=== PATIENT | female | born 1940 | race Caucasian/White ===

== ENCOUNTER → 2017-03-02 | Outpatient (CLI) | payer MEDICARE, OTHER | LOC: MAMMO 13:04 | DX: Z12.31 Encounter for screening mammogram for malignant neoplasm of breast (principal) | CPT/HCPCS: G0202 ==

== ENCOUNTER → 2018-04-19 | Outpatient (CLI) | payer MEDICARE, OTHER | LOC: MAMMO 10:44 | DX: Z12.31 Encounter for screening mammogram for malignant neoplasm of breast (principal) ==

== ENCOUNTER 2021-02-26 11:45 | Emergency (ER) | payer MEDICARE, OTHER ==
[~2021-02-26] VITALS: Ht 165.1 cm; Wt 90.9 kg
[2021-02-26 12:58] VITALS: BP 147/76
== END 2021-02-26 12:57 | disposition home or self-care (01) ==
LOC: ED 11:45
DX: S60.222A Contusion of left hand, initial encounter (principal); I10 Essential (primary) hypertension; W01.0XXA Fall on same level from slipping, tripping and stumbling without subsequent striking against object, initial encounter; W23.0XXA Caught, crushed, jammed, or pinched between moving objects, initial encounter

== ENCOUNTER 2024-07-03 13:24 | Emergency (ER) | payer MEDICARE, OTHER ==
[~2024-07-03] VITALS: Ht 162.6 cm; Wt 82.9 kg
[~2024-07-03 13:24] MED LIST: ATORVASTATIN CA20 MG PO; GABAPENTIN100 MG PO; LEVOTHYROXINE125 MCG PO; METOPROLOL SUCC25 M1 PO; PRILOSEC 20MG20 MG PO; VALSARTAN AND H1 TA3 PO
[2024-07-03 14:10] LABS: BASO # 0.03 K/mm3 (0.02-0.10); EOS # 0.19 K/mm3 (0.04-0.40); EOS % 2.4 % (1.0-5.0); HEMATOCRIT 39.7 % (37.0-47.0); HEMOGLOBIN 12.4 g/dL (12.5-16.0); LYMPH# 1.57 K/mm3 (1.50-4.00); MEAN CELL VOLUME 94 fl (78-100); MEAN CORPUSCULAR HEMOGLOBIN 30 pg (27-31); MEAN CORPUSCULAR HGB CONC 31 g/dL (33-37); MEAN PLATELET VOLUME 9.6 fl (7.4-10.4); MONO # 0.53 K/mm3 (0.20-0.80); NEU # 5.44 K/mm3 (1.40-6.50); PLATELET COUNT 301 K/mm3 (130-400); RED BLOOD COUNT 4.21 M/mm3 (4.10-5.30); RED CELL DISTRIBUTION WIDTH 14.2 % (11.5-14.5); WHITE BLOOD COUNT 7.8 K/mm3 (4.8-10.8)
[2024-07-03 14:15] LABS: ALBUMIN 4.4 g/dL (3.4-4.8); SODIUM 139 mmol/L (136-145)
[2024-07-03 14:17] LABS: CALCIUM 9.8 mg/dL (8.3-10.5)
[2024-07-03 14:18] LABS: GLUCOSE 117 mg/dL (65-105); TOTAL PROTEIN 7.5 g/dL (6.2-8.1)
[2024-07-03 14:19] LABS: CARBON DIOXIDE 24 mmol/L (23-31)
[2024-07-03 14:23] LABS: AST-SGOT 18 U/L (5-34)
[2024-07-03 14:24] LABS: ALT/SGPT 23 U/L (0-55)
[2024-07-03 14:31] LABS: TROPONIN-I < 0.030 ng/mL (0.00-0.033)
[2024-07-03 14:43] LABS: TOTAL BILIRUBIN 0.3 mg/dL (0.2-1.2)
[2024-07-03 15:09] VITALS: BP 180/104
== END 2024-07-03 15:09 | disposition home or self-care (01) ==
LOC: ED 13:24
PROVIDERS: Nurse Practitioner Family
DX: I10 Essential (primary) hypertension (principal); M79.89 Other specified soft tissue disorders